=== PATIENT | female | born 1965 | race Caucasian/White ===

== ENCOUNTER 2022-04-24 09:08 | Emergency (ER) | payer BC, SELFPAY ==
[2022-04-24] MEDS ORDERED: diphenhydrAMINE 50 MG/ML VIAL ONE (09:31)
[2022-04-24 09:48] LABS: Anion Gap 15 mmol/L (10-20); BUN (Urea Nitrogen) 12 mg/dL (9.8-20.1); Calc. Creatinine Clearance 0 mL/min (70-130); Calcium 9.2 mg/dL (7.8-10.44); Carbon Dioxide 22 mmol/L (22-29); Chloride 105 mmol/L (98-107); Estimated GFR 85; Glucose 109 mg/dL (70-105); Potassium 3.3 mmol/L (3.5-5.1); Sodium 139 mmol/L (136-145)
[2022-04-24 10:17] LABS: Hemoglobin 14.1 g/dL (12.0-16.0); Mean Corpuscular Hemoglobin 28.4 pg (27.0-31.0); Mean Corpuscular Volume 86.2 fl (78.0-98.0); Red Blood Cell (RBC) Count 4.97 mill/uL (4.20-5.40); White Blood Cell (WBC) Count 7.1 10x3/uL (4.8-10.8)
[2022-04-24 10:18] LABS: #Basophils 0.1 thou/uL (0.0-0.2); #Eosinphils 0.2 thou/uL (0.0-0.7); #Lymphocytes 3.1 thou/uL (1.20-3.40); #Monocytes 0.5 thou/uL (0.11-0.59); #Neutrophils 3.2 thou/uL (1.40-6.50); %Basophils 1.4 % (0.0-1.0); %Eosinophils 2.5 % (0.0-10.0); %Lymphocytes 43.5 % (21.0-51.0); %Neutrophils 45.5 % (42.0-75.0); Mean Platelet Volume 8.9 fL (7.4-10.4); Platelet Count 286 10x3/uL (130-400); RBC Distribution Width 12.5 % (11.5-14.5)
== END 2022-04-24 10:50 | disposition home or self-care (01) ==
LOC: NAV ERS 09:08
DX: T63.441A Toxic effect of venom of bees, accidental (unintentional), initial encounter (principal); F17.200 Nicotine dependence, unspecified, uncomplicated; E03.9 Hypothyroidism, unspecified
CPT/HCPCS: 80048; 85025; 96374; J1200

== ENCOUNTER 2024-01-16 08:13 | Emergency (ER) | payer BC ==
[2024-01-16] MEDS ORDERED: Dexamethasone 4 MG TAB ONE (08:33)
[2024-01-16] MEDS ORDERED: Famotidine 20 MG TAB ONE (08:33)
== END 2024-01-16 08:42 | disposition home or self-care (01) ==
LOC: NAV ERS 08:13
DX: T63.441A Toxic effect of venom of bees, accidental (unintentional), initial encounter (principal); F17.290 Nicotine dependence, other tobacco product, uncomplicated
CPT/HCPCS: 99283; J8540

== ENCOUNTER 2024-02-13 12:07 | Emergency (ER) | payer BC ==
[2024-02-13] MEDS ORDERED: Dexamethasone 4 mg/ml Vial ONE (12:34)
== END 2024-02-13 12:50 | disposition home or self-care (01) ==
LOC: NAV ERS 12:07
DX: L23.7 Allergic contact dermatitis due to plants, except food (principal); F17.290 Nicotine dependence, other tobacco product, uncomplicated; E03.9 Hypothyroidism, unspecified; Z79.899 Other long term (current) drug therapy
CPT/HCPCS: 96372; 99282; J1100